=== PATIENT | male | born 1980 | race Caucasian/White ===

== ENCOUNTER 2021-02-19 15:55 | Emergency (ER) | payer MEDICAID ==
[~2021-02-19] VITALS: Ht 172.7 cm; Wt 86.4 kg
[2021-02-19] MEDS ORDERED: CYCLOBENZAPRINE HCL 10 MG TABLET PO ONE (16:15)
[2021-02-19] MEDS ORDERED: IBUPROFEN 600 MG TABLET PO ONE (16:15)
[2021-02-19 16:17] VITALS: BP 115/75
== END 2021-02-19 17:45 | disposition home or self-care (01) ==
LOC: EMS 15:55
DX: S39.012A Strain of muscle, fascia and tendon of lower back, initial encounter (principal); V49.9XXA Car occupant (driver) (passenger) injured in unspecified traffic accident, initial encounter; Y93.89 Activity, other specified; Y92.488 Other paved roadways as the place of occurrence of the external cause; Y99.8 Other external cause status
CPT/HCPCS: 72100; 99283

== ENCOUNTER 2022-09-26 12:26 | Emergency (ER) | payer MEDICAID ==
[~2022-09-26] VITALS: Ht 180.3 cm; Wt 96.4 kg
[2022-09-26] MEDS ORDERED: [UNRECOGNIZED DRUG - CODE] IM (12:41)
[2022-09-26] MEDS ORDERED: [UNRECOGNIZED DRUG - OTHER] PO (12:41)
[2022-09-26] MEDS ORDERED: PRED1 PO (12:44)
[2022-09-26] MEDS ORDERED: PROM6.2514 PO (12:44)
[2022-09-26] MEDS ORDERED: AMOX1TAB15 PO (12:44)
[2022-09-26 12:46] VITALS: BP 121/89
== END 2022-09-26 15:43 | disposition home or self-care (01) ==
LOC: EMS 12:52
DX: R21 Rash and other nonspecific skin eruption (principal); T36.1X5A Adverse effect of cephalosporins and other beta-lactam antibiotics, initial encounter; Y92.89 Other specified places as the place of occurrence of the external cause
CPT/HCPCS: 99282; Z7502